=== PATIENT | female | born 1935 | race Caucasian/White ===

== ENCOUNTER 2016-10-05 11:21 | Emergency (ER) | payer OTHER ==
[~2016-10-05] VITALS: Ht 154.9 cm; Wt 77.0 kg
[~2016-10-05 11:21] MED LIST: CARD120T4; GLUCTAB; GLYB5TAB3 PO; IMDU60TA; IRBE150T49; LANTUSP SQ; LEVO.125; METO25; OMEP20TA PO; PRAV40TA; SITA100 PO; TRAM50TA PO; [UNRECOGNIZED DRUG - OTHER]
[2016-10-05 11:38] VITALS: BP 124/73; PULSE 110; RESP 16; TEMP 98.2; O2SAT 95
--- NOTE | 2016-10-05 13:31 | RADHPO ---
EXAM DATE/TIME: 10/05/2016 12:02 [place] COMPARISON: No previous studies available for comparison. INDICATIONS : Cough MEDICAL HISTORY : None. SURGICAL HISTORY : Mastectomy, right. ENCOUNTER: Initial ACUITY: 1 week PAIN SCORE: 3/10 LOCATION: Bilateral chest FINDINGS: The cardiac silhouette is normal in transverse diameter. The lungs are free of acute parenchymal opac ity. No effusions are identified. There are surgical clips in the right axilla. There is eventration of the right hemidiaphragm. There is mild multilevel degenerative change throughout the spine. CONCLUSION: 1. No acute cardiopulmonary disease. Harris Pritchett MD on October 05, 2016 at 13:27 Board Certified Radiologist. This report was verified electronically.
--- NOTE | 2016-10-05 14:10 | PD ---
HPI Chief Complaint: Cold / Flu Symptoms Time Seen by Provider: 14:04 Travel History International Travel<30 days: No Contact w/Intl Traveler<30days: No Traveled to known affect area: No History of Present Illness HPI Patient is an 81-year-old female presenting to the emergency room for evaluation of a cough. Patient states it's been ongoing for at least one week. She reports coughing up green phlegm with occasional wheezing. She states the cough is worse at night. Patient also has had nasal congestion which per her report appears to be clearing up. Patient denies any fever, chills, nausea , vomiting, headache, shortness of breath. Patient reports pleuritic chest pain when she coughs. Patient is from [place] and is here on vacation. 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) High Cholesterol: Yes Coronary Artery Disease: Yes Diabetes: Yes Patient Takes Glucophage: Yes Diminished Hearing: No GERD: Yes Hypertension: Yes Myocardial Infarction: Yes (3) Thyroid Disease: Yes Menopausal: Yes Past Surgical History Abdominal Surgery: Yes (MASTECTOMY/LYMPH NODES RIGHT) Appendectomy: Yes Cholecystectomy: Yes Hysterectomy: Yes Tonsillectomy: Yes Social History Alcohol Use: No Tobacco Use: No Substance Use: No Allergies-Medications (Allergen,Severity, Reaction): Coded Allergies: Codeine (Verified Allergy, Severe, 10/05/16) Penicillin (Verified Allergy, Severe, 10/05/16) Reported Meds & Prescriptions Reported Meds & Active Scripts Active Reported Zyloprim (Allopurinol) 100 Mg Tab 200 Mg PO DAILY Synthroid (Levothyroxine Sodium) 125 Mcg Tab 125 Mcg PO DAILY Pravastatin 40 Mg Tab 40 Mg PO DAILY Pantoprazole (Pantoprazole Sodium) 40 Mg Tab 40 Mg PO DAILY Metformin (Metformin HCl) 500 Mg Tab 500 Mg PO BIDPC With meals Glyburide 5 Mg Tab 10 Mg PO BID Take with meals at the same time each day [Pro Aas Ec] 80 Mg PO DAILY [Pms Ismn] 60 Mg PO DAILY [Salbutamol] 100 Mcg INH QID PRN [Maglucate] 2 Tab PO BID Lantus Inj (Insulin Glargine) 1,000 Unit/10 Ml Vial 18 Units SQ HS Januvia (Sitagliptin Phosphate) 100 Mg Tab 100 Mg PO DAILY Irbesartan 150 Mg Tab 150 Mg PO DAILY Diltiazem ER 12 HR (Diltiazem HCl) 120 Mg Caper 120 Mg PO DAILY Review of Systems Except as stated in HPI: all other systems reviewed are Neg General / Constitutional: No: Fever, Chills Eyes: No: Visual changes HENT: Positive: Congestion, No: Headaches, Lightheadedness Cardiovascular: No: Chest Pain or Discomfort Respiratory: Positive: Cough, Wheezing, Pleuritic Pain, No: Shortness of Breath Gastrointestinal: No: Nausea, Vomiting, Abdominal Pain Genitourinary: No: Dysuria Musculoskeletal: No: Myalgias Neurologic: No: Weakness, Dizziness, Syncope Physical Exam Narrative GENERAL: Well-developed, well-nourished, alert elderly female. Resting comfortably, nontoxic appearing, in no acute distress. SKIN: Focused skin assessment warm/dry. HEAD: Atraumatic. Normocephalic. EYES: Pupils equal and round. No scleral icterus. No injection or drainage. ENT: No nasal bleeding or discharge. Mucous membranes pink and moist. Cobblestone appearance to posterior pharynx. NECK: Trachea midline. No JVD. CARDIOVASCULAR: Regular rate and rhythm. No murmur appreciated. RESPIRATORY: No accessory muscle use. Clear to auscultation. Slightly diminished in right lower lobe. No wheezes, rhonchi, rales noted. GASTROINTESTINAL: Abdomen soft, non-tender, nondistended. Hepatic and splenic margins not palpable. MUSCULOSKELETAL: No obvious deformities. No clubbing. No cyanosis. No edema. NEUROLOGICAL: Awake and alert. No obvious cranial nerve deficits. Motor grossly within normal limits. Normal speech. PSYCHIATRIC: Appropriate mood and affect; insight and judgment normal. Data Data Last Documented VS Vital Signs Date Time Temp Pulse Resp B/P Pulse Ox O2 Delivery O2 Flow Rate FiO2 10/05/16 14:19 82 14 138/69 94 Room Air 10/05/16 11:38 98.2 Orders Chest, Pa & Lat (10/05/16 ) Albuterol-Ipratropium Neb (Duoneb Neb) (10/05/16 14:30) Complete Blood Count With Diff (10/05/16 15:02) Comprehensive Metabolic Panel (10/05/16 15:02) Influenzae A/B Antigen (10/05/16 15:02) Blood Culture (10/05/16 15:02) Azithromycin (Zithromax) (10/05/16 15:15) Labs Laboratory Tests Test 10/05/16 15:40 White Blood Count 7.8 TH/MM3 Red Blood Count 4.26 MIL/MM3 Hemoglobin 12.5 GM/DL Hematocrit 38.4 % Mean Corpuscular Volume 90.3 FL Mean Corpuscular Hemoglobin 29.3 PG Mean Corpuscular Hemoglobin 32.4 % Concent Red Cell Distribution Width 14.1 % Platelet Count 182 TH/MM3 Mean Platelet Volume 8.3 FL Neutrophils (%) (Auto) 52.7 % Lymphocytes (%) (Auto) 40.2 % Monocytes (%) (Auto) 6.3 % Eosinophils (%) (Auto) 0.7 % Basophils (%) (Auto) 0.1 % Neutrophils # (Auto) 4.1 TH/MM3 Lymphocytes # (Auto) 3.1 TH/MM3 Monocytes # (Auto) 0.5 TH/MM3 Eosinophils # (Auto) 0.1 TH/MM3 Basophils # (Auto) 0.0 TH/MM3 CBC Comment DIFF FINAL Differential Comment Sodium Level 140 MEQ/L Potassium Level 3.9 MEQ/L Chloride Level 103 MEQ/L Carbon Dioxide Level 26.0 MEQ/L Anion Gap 11 MEQ/L Blood Urea Nitrogen 21 MG/DL Creatinine 1.00 MG/DL Estimat Glomerular Filtration 53 ML/MIN Rate Random Glucose 233 MG/DL Calcium Level 9.2 MG/DL Total Bilirubin 0.5 MG/DL Aspartate Amino Transf 19 U/L (AST/SGOT) Alanine Aminotransferase 26 U/L (ALT/SGPT) Total Protein 7.8 GM/DL Albumin 3.5 GM/DL MDM Medical Decision Making Medical Screen Exam Complete: Yes Emergency Medical Condition: Yes Interpretation(s) Last Impressions Chest X-Ray 10/05/16 0000 Signed Impressions: Service Date/Time: Wednesday, October 05, 2016 12:02 - CONCLUSION: 1. No acute cardiopulmonary disease. Harris Pritchett MD Vital Signs Date Time Temp Pulse Resp B/P Pulse Ox O2 Delivery O2 Flow Rate FiO2 10/05/16 11:38 98.2 110 16 124/73 95 Differential Diagnosis Bronchitis versus pneumonia versus viral URI versus sinusitis versus other Narrative Course Patient is an 81-year-old female presenting to the emergency department for evaluation of a cough and chest congestion which is been ongoing for approximately one week. Patient has been utilizing her albuterol inhaler twice a day. Initial vital signs showed patient mildly tachycardic with a pulse ox of 95%. Chest x-ray shows no acute cardiopulmonary disease. Vital signs are reassessed, heart rate normalized. Patient given DuoNeb 2. Her pulse ox was reassessed at 96% on room air. Patient reports improvement in her breathing. Discussed with my attending physician. Dr. Smith recommended labs, blood cultures, influenza. These were obtained. CBC is normal Influenza was negative Chemistry is unremarkable Patient given first dose of azithromycin in the emergency department. Patient was encouraged to continue her home albuterol every 6 hours as directed. Patient has only been utilizing it twice a day. She was advised to return to emergency department for any new or worsening symptoms. Patient verbalized understanding of instructions. Patient is stable for discharge. Diagnosis Primary Impression: Upper respiratory infection Qualified Code: J06.9 - Upper respiratory tract infection, unspecified type Referrals: Primary Care Physician Patient Instructions: General Instructions, Upper Respiratory Infection (ED) Additional Instructions: Follow-up with your primary doctor Return to emergency department immediately for any new or worsening symptoms Complete full course of antibiotics as directed Use albuterol inhaler every 6 hours as needed as previously prescribed Med/Other Pt SpecificInfo: Prescription(s) given Scripts Benzonatate (Tessalon Perles)100 Mg [id number] Mg PO TID PRN (COUGH) #10 CAP Ref 0 Prov:Rayna Kaye 10/05/16 Azithromycin 250 Mg [id number] Mg PO DAILY #5 TAB Ref 0 Prov:Rayna Kaye 10/05/16 Disposition: 01 DISCHARGE HOME Condition: Stable Rayna Kaye Oct 05, 2016 14:10
[2016-10-05] MEDS ORDERED: METF500T PO (14:14)
[2016-10-05] MEDS ORDERED: SALBUTAMOL INH (14:14)
[2016-10-05] MEDS ORDERED: GLYB5TAB3 PO (14:14)
[2016-10-05] MEDS ORDERED: ALLO100 PO (14:14)
[2016-10-05] MEDS ORDERED: DILT120C9 PO (14:14)
[2016-10-05] MEDS ORDERED: LEVO.125 PO (14:14)
[2016-10-05] MEDS ORDERED: PANT40TA3 PO (14:14)
[2016-10-05] MEDS ORDERED: IRBE150T15 PO (14:14)
[2016-10-05] MEDS ORDERED: [UNRECOGNIZED DRUG - OTHER] PO (14:14)
[2016-10-05] MEDS ORDERED: [UNRECOGNIZED DRUG - OTHER] PO (14:14)
[2016-10-05] MEDS ORDERED: SITA1TAB2 PO (14:14)
[2016-10-05] MEDS ORDERED: PRAV40TA2 PO (14:14)
[2016-10-05] MEDS ORDERED: [UNRECOGNIZED DRUG - OTHER] PO (14:14)
[2016-10-05] MEDS ORDERED: LANTUS2P SQ (14:14)
[2016-10-05 14:19] VITALS: BP 138/69; PULSE 82; RESP 14; O2SAT 94
[2016-10-05] MEDS: RESP: ALBUTEROL 2.5 MG/IPRATROPIUM 0.5 MG NEB (SCH) INH (14:27)
[2016-10-05] MEDS ORDERED: AZITHROMYCIN 250 MG TAB PO ONE (15:15)
[2016-10-05 15:59] LABS: AUTOMATED NEUTROPHIL # 4.1 TH/MM3 (1.8-7.7); BASOPHIL % 0.1 % (0.0-2.0); EOSINOPHIL # 0.1 TH/MM3 (0-0.4); EOSINOPHIL % 0.7 % (0.0-4.0); HEMATOCRIT 38.4 % (35.0-46.0); HEMO FLAGS DIFF FINAL; LYMPH % 40.2 % (9.0-44.0); LYMPHOCYTE # 3.1 TH/MM3 (1.0-4.8); MEAN CELL VOLUME 90.3 FL (80.0-100.0); MEAN CORPUSCULAR HEMOGLOBIN 29.3 PG (27.0-34.0); MEAN CORPUSCULAR HGB CONC 32.4 % (32.0-36.0); MONO % 6.3 % (0.0-8.0); NEUT % 52.7 % (16.0-70.0); PLATELET COUNT 182 TH/MM3 (150-450); RED BLOOD COUNT 4.26 MIL/MM3 (4.00-5.30); RED CELL DISTRIBUTION WIDTH 14.1 % (11.6-17.2); WHITE BLOOD COUNT 7.8 TH/MM3 (4.0-11.0)
[2016-10-05 16:07] LABS: CHLORIDE 103 MEQ/L (98-107); POTASSIUM 3.9 MEQ/L (3.5-5.1); SODIUM (NA) 140 MEQ/L (136-145)
[2016-10-05 16:11] LABS: ANION GAP 11 MEQ/L (5-15); BLOOD UREA NITROGEN 21 MG/DL (7-18)
[2016-10-05 16:14] LABS: ALT (GPT) 26 U/L (10-53); AST (GOT) 19 U/L (15-37); GLOMERULAR FILTRATION RATE 53 ML/MIN (>89)
[2016-10-05 16:15] LABS: TOTAL BILIRUBIN ADULT 0.5 MG/DL (0.2-1.0)
[2016-10-05 16:16] LABS: ALKALINE PHOSPHATASE 98 U/L (45-117)
[2016-10-05] MEDS ORDERED: AZIT250T3 PO (16:19)
[2016-10-05] MEDS ORDERED: BENZ100 PO (16:19)
[2016-10-05 16:30] VITALS: BP 140/60; PULSE 88; RESP 18; O2SAT 96
== END 2016-10-05 16:35 | disposition home or self-care (01) ==
LOC: PHED 11:21 → PHEFT 16:35
DX: J06.9 Acute upper respiratory infection, unspecified (principal); J45.909 Unspecified asthma, uncomplicated; E78.00 Pure hypercholesterolemia, unspecified; I25.10 Atherosclerotic heart disease of native coronary artery without angina pectoris; E11.9 Type 2 diabetes mellitus without complications; K21.9 Gastro-esophageal reflux disease without esophagitis; I25.2 Old myocardial infarction; E07.9 Disorder of thyroid, unspecified
CPT/HCPCS: 71020; 80053; 85025; 87040; 87804; 94640; 94664; 99283